=== PATIENT | male | born 1950 | race Caucasian/White ===

== ENCOUNTER → 2016-06-04 | Outpatient (CLI) | payer OTHER ==
[~2016-06-04] MED LIST: ALBUTEROL17 GM INH; ASPIRIN ENTERI325 M1 PO; ASPIRIN81 MG PO; COMBIVENT MININEB INH; COUMADIN4 MG PO; HYDROCODON-ACE1 EACH PO; IMDUR-ER60 MG DOB; IMDUR-ER60 MG PO; LANOXIN PO; LEVAQUIN750 MG PO; LOPRESSOR PO; MAPAP325 M1 PO; METOPROLOL TAR25 MG PO; MUCUS RELIEF600 M1 PO; MULTAQ400 MG PO; PRAVASTATIN SOD40 MG PO; PREDNISONE PO; TESSALON200 MG PO; ZYRTEC10 M2 PO
--- NOTE | ~2016-06-04 | CT57 ---
[facility] A Service of [facility] & [facility] RADIOLOGY TEXT RESULTS PATIENT: PRIYANKA MENSAH LOCATION: [facility] : [birth year] UNIT #: [id number] AGE: [address]: Anand Leavitt MD SEX: M ORDER DR: [id number] [facility] [address] [place], [place] [address] [id number] O MR#: [id number] [facility] #: [id number] NAME: PRIYANKA MENSAH : 1950 SEX: M STUDY DATE/TIME: 06/04/2016 7:16 UNIT: [facility] ROOM: STUDY DESCRIPTION: CT Chest Wo Cont Attending Physician: Anand Leavitt M.D. Referring Physician: Anand Leavitt M.D. Ordering Physician: Anand Leavitt M.D. Primary Care Physician: No Primary Care Physician MEDICAL IMAGING REPORT This report is preliminary unless electronic signature is present EXAM CT chest without contrast. HISTORY 65-year-old male history of lung cancer diagnosed in 2010. Patient underwent left lung resection. Surveillance for metastatic disease. COMPARISON CT chest 05/29/2015, 02/28/2016. TECHNIQUE Axial images performed through the chest without contrast. Multiplanar reconstructed images reviewed at a workstation. This CT exam was performed with one or more of the following radiation dose reduction techniques: automatic exposure control, adjustment of mA and/or kV according to patient size, and iterative reconstruction. FINDINGS Examination demonstrates postsurgical changes compatible with a left pneumonectomy. A small pleural fluid collection noted within the left thorax. There is shift of the mediastinal structures to the left of midline and compensatory hyperinflation of the right lung. Right middle lobe granuloma. Interval resolution of the patient's airspace disease noted in the right middle lobe on the February 2016 study. This is compatible with the resolution of pneumonia. No suspicious nodules or mass lesions identified. Mild tracheobronchomegaly in keeping with mild emphysema. Heart size within normal limits. Aorta and pulmonary vessels unremarkable. Extensive coronary artery calcifications noted. Calcified mediastinal nodes compatible with prior granulomatous disease. Visualized upper abdomen to include the adrenal glands unremarkable. Osseous structures remarkable for a 2.6 x 3 cm calcified and/or ossified STS. [facility] A Service of [facility] & [facility] RADIOLOGY TEXT RESULTS PATIENT: PRIYANKA MENSAH LOCATION: [facility] : 48 UNIT #: [id number] AGE: [address]: Anand Leavitt MD SEX: M ORDER DR: mass in the anterior aspect of the right shoulder, probably represents a loose body. This is actually seen on the post acute care registered nurse radiograph, as well. Suture anchors seen in the left proximal humerus compatible with prior rotator cuff repair. IMPRESSION 1. Postsurgical changes from a left total pneumonectomy with compensatory hyperinflation of the right lung. 2. No findings to suggest recurrent or metastatic disease within the visualized chest. 3. Interval resolution in right middle lobe pneumonia noted on the February [address] 4. Suspected glenohumeral joint osteoarthritis with a sizable loose body in the anterior glenohumeral joint. Dictated by... Antony Brewer M.D. THIS IS AN ELECTRONICALLY VERIFIED REPORT Antony Brewer M.D. at 06/05/2016 9:36 AM YOLANDA/bobby TD: 06/04/2016 15:02 JOB #: [id number] MEDICAL IMAGING REPORT Page 1 of 1 COPY
== END | disposition home or self-care (01) ==
LOC: CCAT 06:59
DX: Z08 Encounter for follow-up examination after completed treatment for malignant neoplasm (principal); J98.4 Other disorders of lung; M24.019 Loose body in unspecified shoulder; Z90.2 Acquired absence of lung [part of]; Z85.118 Personal history of other malignant neoplasm of bronchus and lung
CPT/HCPCS: 71250